=== PATIENT | female | born 1935 | race Caucasian/White ===

== ENCOUNTER 2018-11-17 05:55 | Emergency (ER) | payer MEDICARE, OTHER ==
[~2018-11-17] VITALS: Ht 162.6 cm; Wt 90.1 kg
[~2018-11-17 05:55] MED LIST: ALPR0.5T6 PO; ATOR20TA65 PO; FURO20TA3 PO; GLIP10TA14 PO; HYDR-3672; LOSA100T15 PO
[2018-11-17 06:06] VITALS: Ht 162.6 cm; Wt 90.1 kg
[2018-11-17 07:36] VITALS: BP 163/77; PULSE 72; RESP 18
== END 2018-11-17 07:36 | disposition home or self-care (01) ==
LOC: E/R 05:55
DX: I10 Essential (primary) hypertension (principal); E11.69 Type 2 diabetes mellitus with other specified complication; E66.9 Obesity, unspecified; Z68.34 Body mass index [BMI] 34.0-34.9, adult
CPT/HCPCS: 80048; 84484; 85025; 93005